=== PATIENT | female | born 1980 | race Caucasian/White ===

== ENCOUNTER 2021-02-13 12:56 | Inpatient (IN) | payer OTHER ==
[2021-02-13] MEDS ORDERED: SODIUM CHLORIDE 1,000 ML IV STA (13:11)
[2021-02-13] MEDS ORDERED: MAG HYDROX/AL HYDROX/SIMETH 30 ML UNIT-DOSE CUP PO ONE (13:12)
[2021-02-13] MEDS ORDERED: ONDANSETRON 4 MG/2 ML VIAL IVPUSH ONE (13:12)
[2021-02-13] MEDS ORDERED: FAMOTIDINE 20 MG/50 ML IVPB 20 MG/50 ML MG IVPB ONE ×2 (13:12→13:41)
[2021-02-13] MEDS ORDERED: MAG HYDROX/AL HYDROX/SIMETH 30 ML UNIT-DOSE CUP ONE (13:41)
[2021-02-13 14:07] LABS: HEMATOCRIT 39.7 % (32.4-45.2); HEMOGLOBIN 13.1 GM/dl (10.7-15.3); MCH 29.5 pg (25.7-33.7); MCHC 33.2 g/dl (32.0-36.0); MEAN CELL VOLUME 88.9 fl (80-96); PLATELET COUNT 346 K/MM3 (134-434); RBC 4.46 M/mm3 (3.60-5.2); RDW 12.1 % (11.6-15.6); WHITE BLOOD COUNT 18.4 K/mm3 (4.0-10.8)
[2021-02-13 14:14] LABS: ALBUMIN 4.3 g/dl (3.4-5.0); BILIRUBIN,TOTAL 0.5 mg/dl (0.2-1); CALCIUM 8.9 mg/dl (8.5-10); CREATININE 0.6 mg/dl (0.55-1.3); TOT PROT 7.3 g/dl (6.4-8.2)
[2021-02-13 15:24] LABS: EPITHELIAL CELLS MODERATE /hpf
[2021-02-13 15:34] LABS: PLATELET ESTIMATE ADEQUATE
[2021-02-13] MEDS ORDERED: PIPERACILLIN/TAZOB 4.5 GM 4.5 GM in DEXTROSE 5%-WATER - 100 ML IVPB ONE (17:48)
[2021-02-13] MEDS ORDERED: PIPERACILLIN/TAZOBACTAM 4.5 GM VIAL IVPB ONE (17:56)
[2021-02-13] MEDS: LACTATED RINGERS SOLUTION 1000 ML INFUS.BAG IV ONE ×2 (19:05→19:50)
[2021-02-13] MEDS ORDERED: morphine CARPU-JECT 2 MG/1 ML DISP.SYRIN IVPUSH ONE (19:58)
[2021-02-13] MEDS ORDERED: SODIUM CHLORIDE 0.9% 500 ML INFUS.BAG IV ONE (20:02)
[2021-02-13] MEDS ORDERED: SODIUM CHLORIDE 1,000 ML IV SCH (21:30)
[2021-02-13] MEDS ORDERED: PROPOFOL 20 ML ONE ×2 (21:44→22:08)
[2021-02-13] MEDS ORDERED: MIDAZOLAM HCL 2 MG/2 ML SINGLE DOSE VIAL ONE (21:44)
[2021-02-13] MEDS ORDERED: SUCCINYLCHOLINE CHLORIDE 200 MG/10 ML SYRINGE ONE (21:44)
[2021-02-13] MEDS ORDERED: morphine SULFATE 4 MG/ML VIAL ONE (21:58)
[2021-02-13] MEDS ORDERED: HYDROmorphone HCl 2 MG/ML VIAL ONE (22:11)
[2021-02-13] MEDS ORDERED: DEXAMETHASONE SOD PHOSPHATE 4 MG/1 ML VIAL ONE (22:15)
[2021-02-13] MEDS ORDERED: KETOROLAC TROMETHAMINE 30 MG/1 ML VIAL ONE (22:50)
[2021-02-13] MEDS ORDERED: NEOSTIGMINE METHYLSULFATE 0.5 MG/ML - 10 ML MDV ONE (23:00)
[2021-02-13] MEDS ORDERED: BUPIVACAINE HCL/PF 0.5% (5 MG/ML) 30 ML VIAL IJ ONE (23:00)
[2021-02-13] MEDS ORDERED: GLYCOPYRROLATE 0.2 MG/1 ML VIAL ONE (23:01)
[2021-02-13] MEDS ORDERED: oxyCODONE HCL 5 MG TABLET PO PRN (23:10)
[2021-02-13] MEDS ORDERED: ACETAMINOPHEN 1000 MG/100 ML VIAL (NON FORMULARY) IVPB PRN (23:11)
[2021-02-14] MEDS ORDERED: ONDANSETRON 4 MG/2 ML VIAL IVPUSH PRN ×2 (00:01)
[2021-02-14] MEDS: SODIUM CHLORIDE 1,000 ML IV SCH ×2 (01:27→18:41)
[2021-02-14 01:59] VITALS: BMI 30.6
[2021-02-14] MEDS ORDERED: HEPARIN NA (PORCINE) 5,000 UNITS/ML 1ML VIAL SQ SCH (06:00)
[2021-02-14] MEDS: HEPARIN NA (PORCINE) 5,000 UNITS/ML 1ML VIAL SQ SCH ×3 (06:12→21:12)
[2021-02-14 07:17] LABS: HEMATOCRIT 35.2 % (32.4-45.2); HEMOGLOBIN 11.8 GM/dL (10.7-15.3); LYMPH % 4.3 % (8-40); MCH 29.8 pg (25.7-33.7); MCHC 33.6 g/dl (32.0-36.0); MEAN CELL VOLUME 88.4 fl (80-96); MEAN PLT VOLUME 8.1 fl (7.5-11.1); MONO % 2.1 % (3.8-10.2); NEUT % 93.6 % (42.8-82.8); PLATELET COUNT 326 K/MM3 (134-434); RBC 3.98 M/mm3 (3.60-5.2); RDW 13.1 % (11.6-15.6); WHITE BLOOD COUNT 16.5 K/mm3 (4.0-10.0)
[2021-02-14 07:48] LABS: ALBUMIN 3.5 g/dl (3.4-5.0); BLOOD UREA NITROGEN 8.3 mg/dL (7-18); CALCIUM 8.9 mg/dL (8.5-10.1)
[2021-02-14 07:52] LABS: CREATININE 0.7 mg/dL (0.55-1.3)
[2021-02-14 07:53] LABS: BILIRUBIN,TOTAL 0.7 mg/dL (0.2-1); TOT PROT 6.7 g/dl (6.4-8.2)
[2021-02-14 09:24] LABS: ANISOCYTOSIS 0; HELMET CELLS 0; HOWELL-JOLLY BODIES 0; MACROCYTOSIS 0; OVALOCYTE 0; PLATELET ESTIMATE NORMAL; ROULEAU 0; SICKELED CELLS 0; TARGET CELLS 0; TEAR DROP CELLS 0; TOXIC GRANULATION 0
[2021-02-14] MEDS ORDERED: cefTRIAXone SODIUM 1 GM VIAL ONE (09:33)
[2021-02-14] MEDS ORDERED: DEXTROSE 5%-WATER - 50 ML IVPB ONE (09:34)
[2021-02-14] MEDS: CEFTRIAXONE 1 GM in DEXTROSE 5%-WATER - 50 ML IVPB SCH (12:06)
[2021-02-14] MEDS: amLODIPine BESYLATE 10 MG TABLET (FP) PO SCH (15:04)
[2021-02-15] MEDS: SODIUM CHLORIDE 1,000 ML IV SCH ×2 (01:35→05:51)
[2021-02-15] MEDS: HEPARIN NA (PORCINE) 5,000 UNITS/ML 1ML VIAL SQ SCH (05:22)
[2021-02-15 08:28] LABS: BASO % 0.4 % (0-2.0); EOS % 0.5 % (0-4.5); HEMATOCRIT 33.4 % (32.4-45.2); HEMOGLOBIN 11.2 GM/dL (10.7-15.3); LYMPH % 33.9 % (8-40); MCH 29.7 pg (25.7-33.7); MCHC 33.5 g/dl (32.0-36.0); MEAN CELL VOLUME 88.6 fl (80-96); MEAN PLT VOLUME 7.9 fl (7.5-11.1); MONO % 8.1 % (3.8-10.2); NEUT % 57.1 % (42.8-82.8); PLATELET COUNT 285 K/MM3 (134-434); RBC 3.77 M/mm3 (3.60-5.2); RDW 12.9 % (11.6-15.6)
[2021-02-15 08:48] LABS: ALBUMIN 3.2 g/dl (3.4-5.0); BLOOD UREA NITROGEN 9.9 mg/dL (7-18); CALCIUM 8.3 mg/dL (8.5-10.1); MAGNESIUM 2.2 mg/dL (1.8-2.4)
[2021-02-15 08:52] LABS: CREATININE 0.7 mg/dL (0.55-1.3); PHOSPHOROUS 2.4 mg/dL (2.5-4.9)
[2021-02-15 08:53] LABS: BILIRUBIN,TOTAL 0.3 mg/dL (0.2-1); TOT PROT 6.2 g/dl (6.4-8.2)
[2021-02-15] MEDS ORDERED: cefTRIAXone SODIUM 1 GM VIAL ONE (09:34)
[2021-02-15] MEDS ORDERED: DEXTROSE 5%-WATER - 50 ML IVPB ONE (09:34)
[2021-02-15] MEDS: amLODIPine BESYLATE 10 MG TABLET (FP) PO SCH (09:50)
[2021-02-15] MEDS: CEFTRIAXONE 1 GM in DEXTROSE 5%-WATER - 50 ML IVPB SCH (09:50)
[2021-02-15] MEDS ORDERED: LOSARTAN POTASSIUM 50 MG TABLET PO SCH (10:00)
[2021-02-15 12:01] VITALS: BP 141/87; PULSE 110; TEMP 98.2
== END 2021-02-15 14:51 | disposition home or self-care (01) | DRG 225 ==
LOC: FER 12:56 → J8W 22:08
PROVIDERS: ADMIT Surgery; ATTEND Internal Medicine
PROC: 0DTJ4ZZ Resection of Appendix, Percutaneous Endoscopic Approach (ICD-10-PCS; principal; 2021-02-13 20:00)
DX: K35.80 Unspecified acute appendicitis (principal); I10 Essential (primary) hypertension; E86.0 Dehydration; R00.0 Tachycardia, unspecified; R73.9 Hyperglycemia, unspecified; R82.81 Pyuria
CPT/HCPCS: 36415; 74177-TC; 80053; 81003; 81015; 82550; 83690; 83735; 84100; 84484; 84703; 85025; 88304-TC; 93005; 94760; 99285-25; C9803; J1644; Q9967; U0003